=== PATIENT | male | born 1980 | race Caucasian/White ===

== ENCOUNTER 2025-07-01 16:50 | Emergency (ER) | payer SELFPAY ==
[2025-07-01 17:30] VITALS: BP 142/76; PULSE 88; RESP 18; TEMP 36.3; O2SAT 97
--- NOTE | 2025-07-01 17:39 | PC.NURSE ---
Addendum entered by Lakesha Bingham RN [facility]END 07/01/25 19:18: PD stated pt no longer needed straight catheter for UA sample. Original Note: pt verbally agrees to straight catheter for urine collection.
== END 2025-07-01 18:04 ==
DX: Z02.83 Encounter for blood-alcohol and blood-drug test (principal)
CPT/HCPCS: 99199